=== PATIENT | female | born 1975 | race Caucasian/White ===

== ENCOUNTER 2016-04-22 22:16 | Emergency (ER) | payer OTHER ==
[~2016-04-22] VITALS: Ht 162.6 cm; Wt 100.0 kg
[~2016-04-22 22:16] MED LIST: BACTRIM,SEPT1 TABLET PO; CIPRO500 MG PO; DIVALPROEX SOD500 M1; FIORICET WI1 CAPSULE PO; FLOMAX0.4 MG PO; IBUPROFEN800 MG PO; INDOCIN50 MG PO; KEFLEX500 MG PO; LIDODERM 5% P1 PATCH TD; MOTRIN800 MG PO; NAPROSYN500 MG PO; NOHOMEMEDS; NORCO 7.5/321 TABLET PO; PANTOPRAZOLE SO40 MG; PANTOPRAZOLE SO40 MG PO; PROTONIX40 MG PO; PYRIDIUM100 MG PO; RANITIDINE HCL300 MG PO; ULTRAM50 MG PO; VALIUM2 MG PO; VICODIN,LORT1 TABLET PO; VITAMIN D1000 UNIT; XANAX0.25 MG PO; ZOFRAN4 MG PO
[2016-04-22 23:29] LABS: ADD MIUA? YES; BILIRUBIN NEGATIVE; BLOOD MODERATE; COLOR YELLOW ((YELLOW)); GLUCOSE (STRIP) NEGATIVE; KETONES NEGATIVE; LEUKOCYTES MODERATE; NITRITE NEGATIVE; PROTEIN (STRIP) NEGATIVE; SPECIFIC GRAVITY 1.019 (1.000-1.030); UROBILINOGEN 0.2 MG/DL (0.2-1.0)
[2016-04-22 23:37] LABS: HEMATOCRIT 42.2 % (36.0-46.0); MCH 28.6 PG (29.0-34.0); MCHC 33.2 G/DL (30.0-36.0); MCV 86.3 FL (83-99); MEAN PLAT.VOLUME 9.2 uM^3 (9.5-12.4); PLATELET COUNT 328 K/uL (156-360); RBC DIS.WIDTH-CV 13.3 % (11.8-14.6); RBC DIS.WIDTH-SD 41.2 % (39-53); RED BLOOD COUNT 4.89 M/uL (3.80-5.20); WHITE BLOOD COUNT 12.5 K/uL (4.1-10.2)
[2016-04-22 23:38] LABS: AMPHETAMINE NEGATIVE (500 ng/mL); BARBITURATES NEGATIVE (200 ng/mL); BENZODIAZEPINES PRESUMPTIVE POSITIVE (150 ng/mL); COCAINE NEGATIVE (150 ng/mL); INTERNAL CONTROLS VALID? YES; METHADONE NEGATIVE (200 ng/mL); METHAMPHETAMINE NEGATIVE (500 ng/mL); OPIATES (MORPHINE) NEGATIVE (100 ng/mL); OXYCODONE NEGATIVE (100 ng/mL); PHENCYCLIDINE NEGATIVE (25 ng/mL); PROPOXYPHENE NEGATIVE (300 ng/mL); THC CANNABINOIDS NEGATIVE (50 ng/mL); TRICYCLIC ANTIDEPRESSANTS NEGATIVE (300 ng/mL)
[2016-04-22 23:39] LABS: ADD MEDTOX COMMENT Y
[2016-04-22 23:45] LABS: CHLORIDE 108 mEq/L (99-109); POTASSIUM 3.5 mEq/L (3.7-5.4); SODIUM 140 mEq/L (136-147)
[2016-04-22 23:47] LABS: GLUCOSE 94 mg/dL (70-99)
[2016-04-22 23:48] LABS: ANION GAP 9 MEQ/L (2-14)
[2016-04-22 23:49] LABS: BACTERIA 1+; CASTS NONE SEEN /LPF; CRYSTALS NONE SEEN; EPITHELIAL CELLS 1+; MUCUS NONE SEEN; RED BLOOD CELLS 0-5 /HPF (0-5); UCUL ADDED? NO
[2016-04-22 23:50] LABS: SERUM ETHYL ALCOHOL < 10 mg/dL
[2016-04-22 23:51] LABS: GFR ESTIMATE (CALCULATED) > 59 mL/min/
[2016-04-22 23:52] LABS: UREA NITROGEN (BUN) 7 mg/dL (9-23)
[2016-04-22 23:59] LABS: QUANTITATIVE HCG < 4.0 MIU/ML
[2016-04-23 00:45] LABS: BENZODIAZEPINES, URINE SCREEN POSITIVE (200 ng/mL)
[2016-04-23] MEDS ORDERED: MACROBID100 MG PO (01:34)
[2016-04-23 02:03] VITALS: BP 103/83
== END 2016-04-23 02:06 | disposition home or self-care (01) ==
LOC: EME → EDBD 22:16 → EME 22:16
PROVIDERS: Emergency Medicine
DX: N30.91 Cystitis, unspecified with hematuria (principal); F43.23 Adjustment disorder with mixed anxiety and depressed mood; F32.9 Major depressive disorder, single episode, unspecified; K21.9 Gastro-esophageal reflux disease without esophagitis
CPT/HCPCS: 80048; 81003; 84702; 84999; 85027; 90837; 99281; 99285; G0480